=== PATIENT | female | born 2000 | race Two or more races ===

== ENCOUNTER 2025-02-20 09:00 | Outpatient (CLI) | payer OTHER ==
[2025-02-20 10:16] LABS: BASO % 0.5 % (0.1-1.2); EOS # 0.21 (0.04-0.54); EOS % 2.5 % (0.7-7.0); LYMPH # 1.77 (1.18-3.74); LYMPH % 21.4 % (19.3-53.1); MEAN PLATELET VOLUME 9.60 fl (9.4-12.4); MONO # 0.52 (0.24-0.82); MONO % 6.3 % (4.7-12.5); NEUT # 5.74 (1.56-6.13); NEUT % 69.2 % (34.0-71.1); RED CELL DISTRIBUTION WIDTH 11.9 % (11.6-14.4)
[2025-02-20 10:58] LABS: ALT/SGPT 21 U/L (12-78); AST/SGOT 8 U/L (15-37); BILIRUBIN TOTAL 0.27 mg/dL (0.3-1.2); BILIRUBIN,CONJUGATED < 0.10 mg/dL (0.0-0.2); BUN CREA RATIO 20 (7.0-25.0); CHOL HDL RATIO 3.1 (0-5.0); CREATININE SERUM 0.55 mg/dL (0.55-1.02); GFR 138.21; GLOBULINA 4.0 G/DL (2.4-3.5); GLUCOSE FASTING 81 mg/dL (65-100); HDL 68 mg/dl (40-60); LDL 110 mg/dl (0-130); OSMOLALITY SERUM 278 MOSM/KG (275-295); TSH 3.100 uIU/mL (0.358-3.74); VLDL 31 (0-39)
[2025-02-20 11:24] LABS: T3 TOTAL 2.33 ng/ml (0.846-2.02); T4 TOTAL 16.72 UG/DL (4.8-13.9); VITAMIN D3 25 HYDROXY 28.12 ng/ml (30-120)
[2025-02-22 09:11] LABS: LEUTEINIZING HORMONE 3.9 mIU/mL (.); PROGESTERONA 0.2 ng/mL (.)
[2025-02-23 15:12] LABS: T T 19.0 ng/dL (13-71); test free 0.6 pg/mL (0.0-4.2)
[2025-02-24 17:08] LABS: ESTROGENO 31.0 pg/mL (.)
== END 2025-02-20 09:07 | disposition home or self-care (01) ==
LOC: LAB 09:00
DX: N95.1 Menopausal and female climacteric states (principal); K76.0 Fatty (change of) liver, not elsewhere classified; E78.9 Disorder of lipoprotein metabolism, unspecified; E11.69 Type 2 diabetes mellitus with other specified complication; N95.9 Unspecified menopausal and perimenopausal disorder; E55.9 Vitamin D deficiency, unspecified; E03.9 Hypothyroidism, unspecified; I11.9 Hypertensive heart disease without heart failure; N63.0 Unspecified lump in unspecified breast; E29.1 Testicular hypofunction; K76.9 Liver disease, unspecified; E11.9 Type 2 diabetes mellitus without complications